=== PATIENT | male | born 1990 ===

== ENCOUNTER 2017-03-09 01:24 | Emergency (ER) | payer OTHER ==
[2017-03-09 01:47] VITALS: BP 116/52; PULSE 93; RESP 17; TEMP 97.8; O2SAT 94
[2017-03-09] MEDS ORDERED: Sodium Chloride 0.9% 1,000 ML IV STA (02:11)
[2017-03-09 03:59] LABS: BASO % 0.2 % (0.0-2.0); EOS % 0.4 % (0.0-4.0); HEMOGLOBIN 14.4 g/dL (12.0-18.0); LYMPH # 1.1 K/uL (1.0-4.3); MEAN CELL VOLUME 87.8 fl (80.0-94.0); MEAN CORPUSCULAR HEMOGLOBIN 29.4 pg (27.0-31.0); MEAN CORPUSCULAR HGB CONC 33.5 g/dL (33.0-37.0); MONO # 0.2 K/uL (0.0-0.8); MONO % 5.5 % (0.0-10.0); NEUT # 3.1 K/uL (1.8-7.0); NEUT % 69.9 % (50.0-75.0); NRBC % 0.1 % (0.0-0.0); RBC 4.89 Mil/uL (4.40-5.90); RED CELL DISTRIBUTION WIDTH 13.2 % (11.5-14.5); WHITE BLOOD COUNT 4.5 K/uL (4.8-10.8)
[2017-03-09 04:06] LABS: ALB/GLOB RATIO 1.5 (1.0-2.1); ALBUMIN 4.6 g/dL (3.5-5.0); ALT/SGPT 29 U/L (21-72); AST/SGOT 27 U/L (17-59); BLOOD UREA NITROGEN 12 mg/dl (9-20); CALCIUM 8.8 mg/dL (8.4-10.2); GFR AFRICAN-AMERICAN > 60; GFR NON-AFRICAN AMERICAN > 60
--- NOTE | 2017-03-09 05:24 | ED PDOC ---
HPI: Psych/Substance Abuse Time Seen by Provider: 03/09/17 02:09 Chief Complaint (Nursing): Alcohol Ingestion Chief Complaint (Provider): Alcohol intoxiation ED Caveat: Intoxicated History Per: EMS History/Exam Limitations: intoxication Current Symptoms Are (Timing): Still Present Additional Complaint(s): Blake Wen, a 26 year old male was brought into the Emergency Department by EMS for evaluation and vomiting. No other past surgical or medical history could be obtained due to alcohol intoxication. PMD: Provider TBD Past Medical History Reviewed: Historical Data, Nursing Documentation, Vital Signs Vital Signs: Last Vital Signs Temp 97.8 F 03/09/17 01:43 Pulse 93 H 03/09/17 01:43 Resp 17 03/09/17 01:43 BP 116/52 L 03/09/17 01:43 Pulse Ox 94 L 03/09/17 01:43 - Medical History PMH: No Chronic Diseases - Surgical History Surgical History: No Surg Hx - Family History Family History: States: Unknown Family Hx - Social History Alcohol: Social - Allergies Allergies/Adverse Reactions: Allergies Allergy/AdvReac Type Severity Reaction Status Date / Time Unobtainable Allergy Verified 03/09/17 01:43 Review of Systems ROS Statement: Except As Marked, All Systems Reviewed And Found Negative Review Of Systems: ROS cannot be obtained secondary to pt's inabilty to answer questions. (intoxicated) Gastrointestinal: Positive for: Vomiting Physical Exam - Reviewed Nursing Documentation Reviewed: Yes Vital Signs Reviewed: Yes - Physical Exam Appears: Positive for: Well, No Acute Distress Head Exam: Positive for: ATRAUMATIC, NORMAL INSPECTION, NORMOCEPHALIC Skin: Positive for: Normal Color, Warm, Dry Eye Exam: Positive for: Normal appearance ENT: Positive for: Normal ENT Inspection Neck: Positive for: Normal, Painless ROM. Negative for: Decreased ROM Cardiovascular/Chest: Positive for: Regular Rate, Rhythm. Negative for: Murmur Respiratory: Positive for: Normal Breath Sounds Gastrointestinal/Abdominal: Positive for: Normal Exam Back: Positive for: Normal Inspection Extremity: Positive for: Normal ROM Neurologic/Psych: Positive for: Other (alcohol intoxciated) - Laboratory Results Result Diagrams: 03/09/17 03:45 03/09/17 03:45 - ECG O2 Sat by Pulse Oximetry: 94 (RA) Pulse Ox Interpretation: Normal Medical Decision Making Medical Decision Making: Time: 2:11 Initial Impression: -- 26 y/o male with alcohol intoxication Initial Plan: --Alcohol Serum --Drug Screen --CMP --CBC --Normal Saline 1,000ml iv 1,000mls/hr --Zofran 4mg IV --Reevaluation Clinical Impression: --alcohol abuse with intoxication Upon provider evaluation patient is medically stable, awake, alert, with stable gait. Stable for discharge home Scribe Attestation: Documented by Alma Howell, acting as a scribe for Terrence Ortiz MD Provider Scribe Attestation: All medical record entries made by the Scribe were at my direction and personally dictated by me. I have reviewed the chart and agree that the record accurately reflects my personal performance of the history, physical exam, medical decision making, and the department course for this patient. I have also personally directed, reviewed, and agree with the discharge instructions and disposition. Disposition - Clinical Impression Clinical Impression: Alcohol abuse with intoxication - Patient ED Disposition Is Patient to be Admitted: No - Disposition Disposition: Routine/Home Disposition Time: 06:30 Condition: STABLE Instructions: Alcohol Intoxication (ED) Forms: [employer] (Danish)
[2017-03-09 06:43] LABS: BARBITURATES, UR NEGATIVE (NEGATIVE); BENZODIAZEPINES, UR NEGATIVE (NEGATIVE); OPIATES, UR NEGATIVE (NEGATIVE); PHENCYCLIDINE, UR NEGATIVE (NEGATIVE)
== END 2017-03-09 06:25 | disposition home or self-care (01) ==
LOC: H.ER 01:24
DX: F10.129 Alcohol abuse with intoxication, unspecified (principal); Y90.8 Blood alcohol level of 240 mg/100 ml or more
CPT/HCPCS: 80053; 80320; 80324; 80345; 80346; 80349; 80353; 80358; 80361; 83992; 85025; 96374; 99283; J2405; J7040